=== PATIENT | female | born 1935 | race Two or more races ===

== ENCOUNTER 2019-04-17 23:03 | Inpatient (IN) | payer OTHER, MEDICAID ==
[~2019-04-17] VITALS: Ht 152.4 cm; Wt 57.2 kg
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
--- NOTE | 2019-04-17 23:32 | NUR ---
LAB AT BEDSIDE FOR BLOOD DRAW
[2019-04-17 23:38] LABS: BASOPHILS # (AUTO) 0.1 /CMM (0.0-0.2); BASOPHILS % (AUTO) 0.8 % (0.0-2.0); EOSINOPHILS % (AUTO) 19.8 % (0.0-6.0); HEMATOCRIT 36 % (33-45); HEMOGLOBIN 11.9 g/dL (11.5-14.8); LYMPHOCYTES # (AUTO) 3.7 /CMM (0.8-4.8); LYMPHOCYTES % (AUTO) 30.3 % (20.0-44.0); MEAN CORPUSCULAR HGB CONC 33 g/dl (31.0-36.0); MEAN CORPUSCULAR VOLUME 95 fL (82-100); MONOCYTES # (AUTO) 0.7 /CMM (0.1-1.30); MONOCYTES % (AUTO) 5.7 % (2.0-12.0); NEUTROPHILS # (AUTO) 5.3 /CMM (1.8-8.9); NEUTROPHILS % (AUTO) 43.4 % (43.0-81.0); PLATELET COUNT (AUTO) 251 /CMM (150-450); RED BLOOD CELL COUNT(AUTO) 3.77 MIL/uL (4.0-5.2); WHITE BLOOD COUNT (AUTO) 12.1 K/uL (4.3-11.0)
--- NOTE | 2019-04-17 23:49 | NUR ---
urine collected via straight cath. aware. sent to lab
[2019-04-17 23:51] LABS: ALANINE AMINOTRANSFERASE 25 U/L (12-78); ALBUMIN 3.5 g/dL (3.4-5.0); ALCOHOL, BLOOD < 3 mg/dL (0-0); ALKALINE PHOSPHATASE 68 U/L (46-116); ASPARTATE AMINOTRANSFERASE 10 U/L (15-37); BILIRUBIN,DIRECT 0.1 mg/dL (0.0-0.2); BILIRUBIN,TOTAL 0.4 mg/dL (0.2-1.0); CARBON DIOXIDE 26 mmol/L (21-32); CHLORIDE 106 mmol/L (98-107); CREATININE 0.9 mg/dL (0.6-1.3); GLUCOSE 88 mg/dL (74-106); POTASSIUM 4.5 mmol/L (3.5-5.1); SODIUM SERUM 140 mmol/L (136-145); TOTAL PROTEIN, SERUM 7.4 g/dL (6.4-8.2); UREA NITROGEN, BLOOD 28 mg/dL (7-18)
[2019-04-17 23:52] LABS: ACETAMINOPHEN 0 ug/ml (10-30); SALICYLATE 1.1 mg/dL (2.8-20.0)
--- NOTE | 2019-04-18 | NUR ---
pt in bed sleeping.
[2019-04-18 00:13] LABS: APPEARANCE,URINE Cloudy (CLEAR); BILIRUBIN,URINE Negative (NEGATIVE); BLOOD, URINE Negative Ery/uL (NEGATIVE); COLOR,URINE Yellow (YELLOW); KETONES,URINE Negative (NEGATIVE); LEUKOCYTE ESTERASE ,URINE Negative (NEGATIVE); NITRITE, URINE Negative (NEGATIVE); PROTEIN,URINE 30 mg/dl (NEGATIVE); UGLUCOSE 250 MG/DL mg/dL (NEGATIVE); UROBILINOGEN,URINE 0.2 EU/dL (0.2)
[2019-04-18 00:35] LABS: BACTERIA,URINE Moderate /HPF (None Seen); RBC,URINE 0-2 /HPF (0-2); SQUAMOUS EPITHELIAL CELL,UR Few /HPF (None Seen); WBC,URINE 0-2 /HPF (0-3)
--- NOTE | 2019-04-18 04:11 | NUR ---
BED ASSIGNMENT: 218-A GPS
--- NOTE | 2019-04-18 04:38 | NUR ---
GAVE REPORT TO APOLINAR PETERSEN FOR LEONARDO
--- NOTE | 2019-04-18 04:42 | NUR ---
PT TRANSPORTED TO UNIT WITH EMT AT BEDSIDE. PT IN STABLE CONDITION FOR TRANSPORT
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
[2019-04-18 05:24] VITALS: BP 156/61
[2019-04-18] MEDS ORDERED: SIMV40TA5 PO (05:30)
[2019-04-18] MEDS ORDERED: MAGNESIUM HYDROXIDE 30 ML UDC PO PRN (05:30)
[2019-04-18] MEDS ORDERED: clonazePAM 0.5 MG TABLET PO PRN (05:30)
[2019-04-18] MEDS ORDERED: ACETAMINOPHEN 325 MG TABLET PO PRN (05:30)
[2019-04-18] MEDS ORDERED: MAG HYDROX/AL HYDROX/SIMETH 30 ML UDC PO PRN (05:30)
[2019-04-18] MEDS ORDERED: LAMO25TA10 PO (05:31)
[2019-04-18] MEDS ORDERED: MEMA10TA PO (05:32)
[2019-04-18] MEDS ORDERED: LOSA50TA39 PO (05:32)
[2019-04-18] MEDS ORDERED: METF-441 PO (05:33)
[2019-04-18] MEDS ORDERED: OMEP20CA11 PO (05:34)
[2019-04-18] MEDS ORDERED: ASPI-1152 PO (05:35)
[2019-04-18] MEDS ORDERED: DICL75TA5 PO (05:37)
[2019-04-18] MEDS ORDERED: MOME13HF INH (05:38)
[2019-04-18] MEDS ORDERED: GABA-534 PO (05:38)
[2019-04-18] MEDS ORDERED: GLIP10TA11 PO (05:39)
--- NOTE | 2019-04-18 05:53 | NUR ---
GPS RN NOTE: NOTIFIED DR. ORTEGA OF THE ADMISSION AND MED RECON WITH ORDER OF MILD SLIDING SCALE RECEIVED NOTED AND CARRIED OUT. LEFT MESSAGE TO DAUGHTER REGARDING THE PATIENT ADMISSION.
[2019-04-18] MEDS ORDERED: DEXTROSE 50%-WATER 50 ML DISP.SYRIN IV PRN (06:30)
[2019-04-18] MEDS: BLOOD SUGAR DIAGNOSTIC 1 EACH STRIP IN SCH ×5 (07:44→21:42)
[2019-04-18 08:00] VITALS: BP 151/52
[2019-04-18] MEDS: INSULIN REGULAR, HUMAN 100 UNIT/ML 3 ML VIAL SQ PRN ×3 (09:41→17:41)
--- NOTE | 2019-04-18 10:28 | NUR ---
RN GPS NOTES RECEIVED PATIENT ASLEEP IN BED ABLE TO AROUSE WITH VOICE AND TOUCH NO S/S OF DISTRESS OR ACUTE PAIN NOTED. PATIENT IS A/0 X1-2 LATVIAN SPEAKING .PATIENT DENIES ANY SUICIDE IDEATIONS OR HOMICIDAL IDEATIONS AT THIS TIME. PATIENT HAS NO NEEDS AT THIS TIME . SAFETY PRECAUTIONS IN PLACE BED IN LOW POSITION SIDE RAILS UP X2 FOR SAFETY, BED IN LOW LOCKED POSITION. CALL PORTER WITHIN REACH WILL CONTINUE TO MONITOR ACCORDINGLY
[2019-04-18] MEDS ORDERED: GABAPENTIN 300 MG CAPSULE PO SCH (13:00)
[2019-04-18] MEDS: QUETIAPINE FUMARATE 25 MG TABLET PO SCH ×2 (14:32→17:21)
[2019-04-18 16:00] VITALS: BP 126/64
--- NOTE | 2019-04-18 16:05 | NUR ---
UR Note: MAL faxed a clinical to [facility] with attention to pts case sealer, Glenn, to the fax number: [phone].
[2019-04-18] MEDS ORDERED: FORMOTEROL INH SCH (17:00)
[2019-04-18] MEDS ORDERED: MOMETASONE INH SCH (17:00)
[2019-04-18] MEDS: glipiZIDE 10 MG TABLET PO SCH (17:21)
[2019-04-18] MEDS: METFORMIN 850 MG TABLET PO SCH (17:21)
[2019-04-18] MEDS: DICLOFENAC SODIUM 25 MG TABLET.DR PO SCH (17:22)
--- NOTE | 2019-04-18 18:05 | NUR ---
SPOKE WITH DAUGHTER SKIP IN REGARDS TO BEING ABLE TO BRING IN INHALER. UNABLE TO AT THIS TIME CURRENTLY ON VACATION IN [place]
[2019-04-18 20:00] VITALS: BP 140/61
[2019-04-18] MEDS: SIMVASTATIN 40 MG TABLET PO SCH (21:42)
[2019-04-18] MEDS: TEMAZEPAM 7.5 MG CAPSULE PO PRN (21:43)
[2019-04-19 07:08] LABS: BASOPHILS # (AUTO) 0.2 /CMM (0.0-0.2); EOSINOPHILS % (AUTO) 22.3 % (0.0-6.0); HEMATOCRIT 38 % (33-45); HEMOGLOBIN 12.8 g/dL (11.5-14.8); LYMPHOCYTES # (AUTO) 4.7 /CMM (0.8-4.8); LYMPHOCYTES % (AUTO) 27.2 % (20.0-44.0); MEAN CORPUSCULAR HGB CONC 33 g/dl (31.0-36.0); MEAN CORPUSCULAR VOLUME 93 fL (82-100); MONOCYTES # (AUTO) 0.9 /CMM (0.1-1.30); MONOCYTES % (AUTO) 5.1 % (2.0-12.0); NEUTROPHILS # (AUTO) 7.7 /CMM (1.8-8.9); NEUTROPHILS % (AUTO) 44.4 % (43.0-81.0); PLATELET COUNT (AUTO) 307 /CMM (150-450); RED BLOOD CELL COUNT(AUTO) 4.12 MIL/uL (4.0-5.2); WHITE BLOOD COUNT (AUTO) 17.3 K/uL (4.3-11.0)
[2019-04-19 07:24] LABS: ALANINE AMINOTRANSFERASE 31 U/L (12-78); ALKALINE PHOSPHATASE 67 U/L (46-116); ASPARTATE AMINOTRANSFERASE 13 U/L (15-37); BILIRUBIN,TOTAL 0.5 mg/dL (0.2-1.0); CALCIUM, SERUM 9.3 mg/dL (8.5-10.1); CARBON DIOXIDE 25 mmol/L (21-32); CHLORIDE 102 mmol/L (98-107); GLUCOSE 112 mg/dL (74-106); POTASSIUM 4.1 mmol/L (3.5-5.1); SODIUM SERUM 139 mmol/L (136-145); TOTAL PROTEIN, SERUM 8.1 g/dL (6.4-8.2); UREA NITROGEN, BLOOD 32 mg/dL (7-18)
[2019-04-19 07:49] LABS: CHOLESTEROL 151 mg/dL (<200); HDL CHOLESTEROL 40 mg/dL (40-60); LDL 83 mg/dL (0-99); TRIGLYCERIDES 176 mg/dL (30-150)
[2019-04-19 08:00] VITALS: BP 149/64
[2019-04-19] MEDS: BLOOD SUGAR DIAGNOSTIC 1 EACH STRIP IN SCH ×4 (08:14→21:46)
[2019-04-19] MEDS: METFORMIN 850 MG TABLET PO SCH ×2 (08:14→16:25)
[2019-04-19] MEDS: ASPIRIN EC 81 MG TABLET.DR PO SCH (08:14)
[2019-04-19] MEDS: PANTOPRAZOLE 40 MG TABLET.DR PO SCH (08:14)
[2019-04-19] MEDS: QUETIAPINE FUMARATE 25 MG TABLET PO SCH ×2 (08:15→21:50)
[2019-04-19] MEDS: LOSARTAN POTASSIUM 50 MG TABLET PO SCH (08:15)
[2019-04-19] MEDS: FLUTICASONE/VILANTEROL 1 EACH BLST.W.DEV IH SCH (08:18)
[2019-04-19] MEDS: glipiZIDE 10 MG TABLET PO SCH ×2 (08:20→16:26)
[2019-04-19] MEDS: DICLOFENAC SODIUM 25 MG TABLET.DR PO SCH ×2 (08:22→16:27)
[2019-04-19] MEDS ORDERED: LamoTRIgine 25 MG TABLET PO SCH (09:00)
--- NOTE | 2019-04-19 09:10 | NUR ---
SW attempted to contact pts daughter Kristie [phone] for collateral information, discharge planning, and treatment planning. SW left as voicemail for callback.
--- NOTE | 2019-04-19 09:29 | NUR ---
MAL contacted [facility] Address: [address] [place] [address] and spoke with Mary Carmen, linux server administrator regarding pt return to the facility. Mary Carmen stated that prior to discharge she would like SW to fax clinical information to determine if pt needs to be assessed before returning to facility.
[2019-04-19 09:38] LABS: EOSINOPHILS % (MANUAL) 21 % (0-4); LYMPHOCYTES % (MANUAL) 17 % (16-48); MONOCYTES % (MANUAL) 7 % (0-11.0); NEUTROPHILS % (MANUAL) 55 (42-76)
[2019-04-19] MEDS: INSULIN REGULAR, HUMAN 100 UNIT/ML 3 ML VIAL SQ PRN (12:15)
--- NOTE | 2019-04-19 12:19 | NUR ---
SW attempted to contact pts daughter Kristie [phone] for collateral information, discharge planning, and treatment planning. SW left as voicemail for callback.
--- NOTE | 2019-04-19 12:29 | NUR ---
MAL contacted [facility] Address: [address] [place] [address] and spoke with Mary Carmen, asset administrator regarding collateral information. Mary Carmen informed MAL that pts daughter Kristie is currently in [place] on vacation and does not know when she will be back. Mary Carmen also mentioned that this is pts first psych hospitalization since she's been living at that facility in the past year. Mary Carmen stated that she was unable to provide SW with any more information as she did not have much history on pt.
--- NOTE | 2019-04-19 13:35 | NUR ---
INITIAL DISCHARGE PLAN: Pt will return to Assisted Living. MAL contacted [facility] Address: [address] [place] [address] and spoke with Mary Carmen, human resources benefits administrator regarding pt return to the facility. Mary Carmen stated that prior to discharge she would like SW to fax clinical information to determine if pt needs to be assessed before returning to facility.
[2019-04-19 16:00] VITALS: BP 161/78
--- NOTE | 2019-04-19 19:40 | NUR ---
GPS RN NOTES RECEIVED PT ALLISON CHAIR , ATTEMPTING TO GO OUT OF THE CHAIR. NO AGGRESSIVE BEHAVIOR NOTED.
[2019-04-19 20:04] VITALS: BP 155/68
[2019-04-19] MEDS: SIMVASTATIN 40 MG TABLET PO SCH (21:47)
--- NOTE | 2019-04-19 22:22 | NUR ---
GPS RN NOTES PT REFUSING LIPITOR. PT CONFUSED, REFUSING TO TAKE APPLE SAUCE WITH MEDICINE. EXPLAINED RISK AND BENEFITS. PT STILL REFUSED.
[2019-04-19] MEDS: TEMAZEPAM 7.5 MG CAPSULE PO PRN (22:45)
--- NOTE | 2019-04-19 23:48 | NUR ---
GPS RN NOTES PT SLEEPING COMFORTABLE, NO RESPIRATORY DISTRESS NOTED
[2019-04-20 08:00] VITALS: BP 124/52
[2019-04-20] MEDS: BLOOD SUGAR DIAGNOSTIC 1 EACH STRIP IN SCH ×4 (08:07→21:46)
[2019-04-20] MEDS: glipiZIDE 10 MG TABLET PO SCH ×2 (09:00→17:45)
[2019-04-20] MEDS: DICLOFENAC SODIUM 25 MG TABLET.DR PO SCH ×2 (09:00→17:46)
[2019-04-20] MEDS: METFORMIN 850 MG TABLET PO SCH ×2 (09:00→17:45)
[2019-04-20] MEDS: LOSARTAN POTASSIUM 50 MG TABLET PO SCH (11:15)
[2019-04-20] MEDS: PANTOPRAZOLE 40 MG TABLET.DR PO SCH (11:15)
[2019-04-20] MEDS: ASPIRIN EC 81 MG TABLET.DR PO SCH (11:15)
[2019-04-20] MEDS: INSULIN REGULAR, HUMAN 100 UNIT/ML 3 ML VIAL SQ PRN (14:01)
[2019-04-20] MEDS: FLUTICASONE/VILANTEROL 1 EACH BLST.W.DEV IH SCH (14:08)
--- NOTE | 2019-04-20 15:20 | NUR ---
AM MEDS GIVEN LATE PT. DID NOT WAKE UP TILL AROUND 1130 TO 12 NOON.COVERED FOR MID MORNING INTAKE. ONLY ATE BREAKFAST AND SMALL AMT. LUNCH.
[2019-04-20 16:00] VITALS: BP 134/71
--- NOTE | 2019-04-20 18:26 | NUR ---
NO CHANGE IN STATUS.
[2019-04-20 20:07] VITALS: BP 134/65
[2019-04-20] MEDS: SIMVASTATIN 40 MG TABLET PO SCH (21:45)
[2019-04-20] MEDS: QUETIAPINE FUMARATE 25 MG TABLET PO SCH (21:46)
[2019-04-20] MEDS: TEMAZEPAM 7.5 MG CAPSULE PO PRN (22:30)
[2019-04-21 07:11] LABS: BASOPHILS # (AUTO) 0.1 /CMM (0.0-0.2); CALCIUM, SERUM 9.5 mg/dL (8.5-10.1); CARBON DIOXIDE 26 mmol/L (21-32); CHLORIDE 104 mmol/L (98-107); CREATININE 1.1 mg/dL (0.6-1.3); GLUCOSE 111 mg/dL (74-106); HEMATOCRIT 38 % (33-45); HEMOGLOBIN 12.5 g/dL (11.5-14.8); LYMPHOCYTES # (AUTO) 3.9 /CMM (0.8-4.8); LYMPHOCYTES % (AUTO) 25.9 % (20.0-44.0); MEAN CORPUSCULAR HGB CONC 33 g/dl (31.0-36.0); MEAN CORPUSCULAR VOLUME 93 fL (82-100); MONOCYTES # (AUTO) 0.9 /CMM (0.1-1.30); NEUTROPHILS # (AUTO) 5.8 /CMM (1.8-8.9); NEUTROPHILS % (AUTO) 38.5 % (43.0-81.0); PLATELET COUNT (AUTO) 296 /CMM (150-450); POTASSIUM 4.3 mmol/L (3.5-5.1); RED BLOOD CELL COUNT(AUTO) 4.06 MIL/uL (4.0-5.2); SODIUM SERUM 141 mmol/L (136-145); UREA NITROGEN, BLOOD 37 mg/dL (7-18)
[2019-04-21 07:19] LABS: EOSINOPHILS % (AUTO) 28.6 % (0.0-6.0)
[2019-04-21] MEDS: BLOOD SUGAR DIAGNOSTIC 1 EACH STRIP IN SCH ×4 (07:59→21:15)
[2019-04-21 08:00] VITALS: BP 113/62
[2019-04-21] MEDS: METFORMIN 850 MG TABLET PO SCH ×2 (08:00→16:40)
[2019-04-21] MEDS: glipiZIDE 10 MG TABLET PO SCH ×2 (08:00→16:39)
[2019-04-21] MEDS: LOSARTAN POTASSIUM 50 MG TABLET PO SCH (08:00)
[2019-04-21] MEDS: ASPIRIN EC 81 MG TABLET.DR PO SCH (08:00)
[2019-04-21] MEDS: PANTOPRAZOLE 40 MG TABLET.DR PO SCH (08:00)
[2019-04-21] MEDS: DICLOFENAC SODIUM 25 MG TABLET.DR PO SCH ×2 (08:01→16:40)
[2019-04-21] MEDS: FLUTICASONE/VILANTEROL 1 EACH BLST.W.DEV IH SCH (08:01)
[2019-04-21 09:19] LABS: EOSINOPHILS % (MANUAL) 33 % (0-4); LYMPHOCYTES % (MANUAL) 26 % (16-48); MONOCYTES % (MANUAL) 8 % (0-11.0); NEUTROPHILS % (MANUAL) 33 (42-76)
[2019-04-21] MEDS: INSULIN REGULAR, HUMAN 100 UNIT/ML 3 ML VIAL SQ PRN ×2 (11:52→17:32)
[2019-04-21 16:00] VITALS: BP 151/63
--- NOTE | 2019-04-21 19:15 | NUR ---
GPS RN NOTE, PERFORMED ACCU CHECK WITH A BLOOD SUGAR RESULT OF 158. PATIENT REFUSED INSULIN COVERAGE. OFFERED INSULIN THREE TIMES AND STILL PATIENT REFUSED STATING, " I DON'T WANT INSULIN GET THAT INSULIN AWAY FROM ME ". EDUCATED PATIENT ON THE RISKS AND BENEFITS OF TAKING AND REFUSING INSULIN. WILL CONTINUE TO MONITOR THIS PATIENT.
--- NOTE | 2019-04-21 19:30 | NUR ---
GPS RN NOTE, RECEIVED PATIENT AWAKE AND IN BED, NO S/S OR COMPLAINTS OF PAIN AT THIS TIME. PATIENT IS DISPLAYING NO S/S OF APPARENT DISTRESS AT THIS TIME. PATIENT IS SAMI SPEAKING ONLY. PATIENT BREATHING IS UNLABORED WITH EQUAL RISE AND FALL OF THE CHEST. PATIENT IS ALERT AND ORIENTED X 2 ON ROOM AIR WITH A SPO2 OF 98 %. PATIENT IS MED COMPLAINT, DISORGANIZED, ANXIOUS, COOPERATIVE, AND NEEDS REORIENTATION. PATIENT AGREED TO DO PICTURES TODAY. PATIENT DENIES SUICIDE AND HOMICIDAL IDEATIONS AT THIS TIME. PATIENT ASSISTED WITH TURNING AND REPOSITIONING Q2HR AND PRN FOR COMFORT AND CIRCULATION. PATIENT HAS NO NEEDS AT THIS TIME. PATIENT EDUCATED ON THE USE OF THE CALL PORTER. PATIENT BED SIDE RAILS ARE UP X 2 FOR SAFETY, BED IS LOCKED, AND LOW WILL CONTINUE TO MONITOR AND MAINTAIN SAFETY.
[2019-04-21 20:37] VITALS: BP 134/76
[2019-04-21] MEDS: QUETIAPINE FUMARATE 25 MG TABLET PO SCH (21:59)
[2019-04-21] MEDS: SIMVASTATIN 40 MG TABLET PO SCH (22:00)
[2019-04-22] MEDS: PANTOPRAZOLE 40 MG TABLET.DR PO SCH (07:30)
[2019-04-22] MEDS: BLOOD SUGAR DIAGNOSTIC 1 EACH STRIP IN SCH ×4 (07:30→22:04)
[2019-04-22 08:00] VITALS: BP 120/62
[2019-04-22] MEDS: DICLOFENAC SODIUM 25 MG TABLET.DR PO SCH ×2 (09:00→18:01)
[2019-04-22] MEDS: METFORMIN 850 MG TABLET PO SCH ×2 (09:00→17:57)
[2019-04-22] MEDS: ASPIRIN EC 81 MG TABLET.DR PO SCH (09:00)
[2019-04-22] MEDS: glipiZIDE 10 MG TABLET PO SCH ×2 (09:00→17:57)
[2019-04-22] MEDS: LOSARTAN POTASSIUM 50 MG TABLET PO SCH (09:00)
--- NOTE | 2019-04-22 09:18 | NUR ---
UR NOTE: SW contacted Case Manger: Margaret Glynn [phone] at [facility] Auth: [id number] who stated she would assist SW with discharge planning and transportation. Margaret also stated that pts outpatient psychiatrist is Dr. Rahman and stated pt should be under dr. Rahman's treatment during her current hospitalization. Margaret also requested SW fax daily clinicals to .
[2019-04-22] MEDS: FLUTICASONE/VILANTEROL 1 EACH BLST.W.DEV IH SCH (09:23)
--- NOTE | 2019-04-22 09:49 | NUR ---
UR NOTE: faxed clinical information to Case Manger: Margaret Renard [phone] at [facility] Auth: [id number]
[2019-04-22 14:21] LABS: BASOPHILS # (AUTO) 0.1 /CMM (0.0-0.2); HEMATOCRIT 38 % (33-45); HEMOGLOBIN 12.6 g/dL (11.5-14.8); LYMPHOCYTES # (AUTO) 2.9 /CMM (0.8-4.8); LYMPHOCYTES % (AUTO) 20.1 % (20.0-44.0); MEAN CORPUSCULAR HGB CONC 33 g/dl (31.0-36.0); MEAN CORPUSCULAR VOLUME 95 fL (82-100); MONOCYTES # (AUTO) 0.7 /CMM (0.1-1.30); MONOCYTES % (AUTO) 4.7 % (2.0-12.0); NEUTROPHILS # (AUTO) 6.1 /CMM (1.8-8.9); NEUTROPHILS % (AUTO) 41.9 % (43.0-81.0); PLATELET COUNT (AUTO) 275 /CMM (150-450); RED BLOOD CELL COUNT(AUTO) 4.01 MIL/uL (4.0-5.2); WHITE BLOOD COUNT (AUTO) 14.5 K/uL (4.3-11.0)
[2019-04-22 14:22] LABS: ALANINE AMINOTRANSFERASE 41 U/L (12-78); ALBUMIN 3.9 g/dL (3.4-5.0); ALKALINE PHOSPHATASE 69 U/L (46-116); ASPARTATE AMINOTRANSFERASE 16 U/L (15-37); BILIRUBIN,TOTAL 0.9 mg/dL (0.2-1.0); CALCIUM, SERUM 9.3 mg/dL (8.5-10.1); CARBON DIOXIDE 28 mmol/L (21-32); CHLORIDE 102 mmol/L (98-107); GLUCOSE 211 mg/dL (74-106); POTASSIUM 3.9 mmol/L (3.5-5.1); SODIUM SERUM 140 mmol/L (136-145); UREA NITROGEN, BLOOD 30 mg/dL (7-18)
[2019-04-22 14:23] LABS: EOSINOPHILS % (AUTO) 32.3 % (0.0-6.0)
[2019-04-22 14:57] LABS: LYMPHOCYTES % (MANUAL) 20 % (16-48); MONOCYTES % (MANUAL) 5 % (0-11.0); NEUTROPHILS % (MANUAL) 46 (42-76)
[2019-04-22 14:58] LABS: EOSINOPHILS % (MANUAL) 29 % (0-4)
[2019-04-22 16:00] VITALS: BP 148/61
[2019-04-22 20:22] VITALS: BP 148/75
[2019-04-22] MEDS ORDERED: SIMVASTATIN 20 MG TABLET ONE (21:56)
[2019-04-22] MEDS: QUETIAPINE FUMARATE 25 MG TABLET PO SCH (22:02)
[2019-04-22] MEDS: INSULIN REGULAR, HUMAN 100 UNIT/ML 3 ML VIAL SQ PRN (22:03)
[2019-04-22] MEDS: SIMVASTATIN 40 MG TABLET PO SCH (22:04)
[2019-04-23] MEDS: BLOOD SUGAR DIAGNOSTIC 1 EACH STRIP IN SCH ×4 (07:30→22:10)
[2019-04-23 08:00] VITALS: BP 109/50
--- NOTE | 2019-04-23 08:08 | NUR ---
RN NOTE: REFUSED ACCUCHECK. CONVINCED SHE'S NOT A DIABETIC.
[2019-04-23] MEDS: glipiZIDE 10 MG TABLET PO SCH ×2 (08:25→17:34)
[2019-04-23] MEDS: PANTOPRAZOLE 40 MG TABLET.DR PO SCH (08:26)
[2019-04-23] MEDS: ASPIRIN EC 81 MG TABLET.DR PO SCH (08:26)
[2019-04-23] MEDS: METFORMIN 850 MG TABLET PO SCH ×2 (08:26→17:34)
[2019-04-23] MEDS: LOSARTAN POTASSIUM 50 MG TABLET PO SCH (08:26)
[2019-04-23] MEDS: FLUTICASONE/VILANTEROL 1 EACH BLST.W.DEV IH SCH (08:31)
[2019-04-23] MEDS: DICLOFENAC SODIUM 25 MG TABLET.DR PO SCH ×2 (08:34→17:34)
[2019-04-23 09:51] LABS: BASOPHILS # (AUTO) 0.1 /CMM (0.0-0.2); BASOPHILS % (AUTO) 0.6 % (0.0-2.0); HEMATOCRIT 35 % (33-45); HEMOGLOBIN 11.8 g/dL (11.5-14.8); LYMPHOCYTES # (AUTO) 3.4 /CMM (0.8-4.8); LYMPHOCYTES % (AUTO) 26.2 % (20.0-44.0); MEAN CORPUSCULAR HGB CONC 34 g/dl (31.0-36.0); MEAN CORPUSCULAR VOLUME 94 fL (82-100); MONOCYTES # (AUTO) 0.6 /CMM (0.1-1.30); MONOCYTES % (AUTO) 4.8 % (2.0-12.0); NEUTROPHILS # (AUTO) 4.4 /CMM (1.8-8.9); NEUTROPHILS % (AUTO) 33.1 % (43.0-81.0); PLATELET COUNT (AUTO) 268 /CMM (150-450); RED BLOOD CELL COUNT(AUTO) 3.78 MIL/uL (4.0-5.2); WHITE BLOOD COUNT (AUTO) 13.1 K/uL (4.3-11.0)
[2019-04-23 09:57] LABS: EOSINOPHILS % (AUTO) 35.3 % (0.0-6.0)
[2019-04-23 11:34] LABS: EOSINOPHILS % (MANUAL) 32 % (0-4); LYMPHOCYTES % (MANUAL) 29 % (16-48); MONOCYTES % (MANUAL) 3 % (0-11.0); NEUTROPHILS % (MANUAL) 36 (42-76)
[2019-04-23 16:00] VITALS: BP 142/56
--- NOTE | 2019-04-23 16:18 | NUR ---
MAL received a call from pts daughter [facility] [phone] inquiring on pts discharge. Daughter was concerned as to why pt was still hospitalized and not being discharged. MAL informed her that she would be discussing discharge date with Dr. Rahman. Daughter agreed.
--- NOTE | 2019-04-23 16:20 | NUR ---
MAL received a call from ABHIJEET Rodriguez at [facility] [place] [phone] wanting to know when pt will be discharged to arrange discharge and transportation. MAL informed her that she needed to speak with psychiatrist Dr. Rahman regarding discharge orders and would inform her as soon as she know the discharge date.
[2019-04-23 16:23] LABS: APPEARANCE,URINE SL CLOUDY (CLEAR); BILIRUBIN,URINE NEGATIVE (NEGATIVE); BLOOD, URINE NEGATIVE Ery/uL (NEGATIVE); COLOR,URINE YELLOW (YELLOW); KETONES,URINE NEGATIVE (NEGATIVE); LEUKOCYTE ESTERASE ,URINE 1+ (NEGATIVE); NITRITE, URINE POSITIVE (NEGATIVE); PH,URINE 5.5 (5.0-8.0); PROTEIN,URINE NEGATIVE (NEGATIVE); UGLUCOSE NEGATIVE (NEGATIVE); UROBILINOGEN,URINE 0.2 EU/dL (0.2)
[2019-04-23 16:30] LABS: BACTERIA,URINE Moderate /HPF (None Seen); RBC,URINE 0-2 /HPF (0-2); SQUAMOUS EPITHELIAL CELL,UR Few /HPF (None Seen)
--- NOTE | 2019-04-23 17:39 | NUR ---
RN NOTE: URINE COLLECTED AND CONTACTED LAB FOR WOOL SCOURER. PATIENT HAS NOT HAD A BM YET THROUGHOUT MY SHIFT. WILL COLLECT STOOL SAMPLE ONCE PATIENT HAS ONE.
[2019-04-23] MEDS: INSULIN REGULAR, HUMAN 100 UNIT/ML 3 ML VIAL SQ PRN (17:49)
--- NOTE | 2019-04-23 19:30 | NUR ---
GPS RN NOTE, RECEIVED PATIENT AWAKE AND IN BED, NO S/S OR COMPLAINTS OF PAIN AT THIS TIME. PATIENT IS DISPLAYING NO S/S OF APPARENT DISTRESS AT THIS TIME. PATIENT IS GREEK SPEAKING ONLY. PATIENT BREATHING IS UNLABORED WITH EQUAL RISE AND FALL OF THE CHEST. PATIENT IS ALERT AND ORIENTED X 2 ON ROOM AIR WITH A SPO2 OF 98 %. PATIENT IS MED COMPLAINT, DISORGANIZED, ANXIOUS, COOPERATIVE, AND NEEDS REORIENTATION. PATIENT DENIES SUICIDE AND HOMICIDAL IDEATIONS AT THIS TIME. PATIENT ASSISTED WITH TURNING AND REPOSITIONING Q2HR AND PRN FOR COMFORT AND CIRCULATION. PATIENT HAS NO NEEDS AT THIS TIME. PATIENT EDUCATED ON THE USE OF THE CALL PORTER. PATIENT BED SIDE RAILS ARE UP X 2 FOR SAFETY, BED IS LOCKED, AND LOW WILL CONTINUE TO MONITOR AND MAINTAIN SAFETY.
[2019-04-23 20:45] VITALS: BP 125/61
[2019-04-23] MEDS: CEPHALEXIN MONOHYDRATE 500 MG CAPSULE PO SCH (21:33)
[2019-04-23] MEDS: QUETIAPINE FUMARATE 25 MG TABLET PO SCH (21:35)
[2019-04-23] MEDS: SIMVASTATIN 40 MG TABLET PO SCH (21:37)
--- NOTE | 2019-04-23 22:10 | NUR ---
GPS RN NOTE, PERFORMED ACCU CHECK WITH A BLOOD SUGAR RESULT OF 113. NO INSULIN COVERAGE PER SLIDING SCALE. WILL CONTINUE TO MONITOR THIS PATIENT.
--- NOTE | 2019-04-24 07:35 | NUR ---
GPS/RN - ACCU-CHECK PATIENT REFUSED BLOOD SUGAR CHECK, EXPLAINED THE IMPORTANCE BUT STILL DOESN'T WANT IT.
[2019-04-24] MEDS: BLOOD SUGAR DIAGNOSTIC 1 EACH STRIP IN SCH ×2 (07:36→12:00)
[2019-04-24] MEDS: PANTOPRAZOLE 40 MG TABLET.DR PO SCH (07:55)
[2019-04-24 08:00] VITALS: BP 123/59
[2019-04-24] MEDS: METFORMIN 850 MG TABLET PO SCH (08:25)
[2019-04-24] MEDS: glipiZIDE 10 MG TABLET PO SCH (08:25)
[2019-04-24] MEDS: LOSARTAN POTASSIUM 50 MG TABLET PO SCH (08:25)
[2019-04-24] MEDS: CEPHALEXIN MONOHYDRATE 500 MG CAPSULE PO SCH (08:25)
[2019-04-24] MEDS: ASPIRIN EC 81 MG TABLET.DR PO SCH (08:25)
[2019-04-24] MEDS: FLUTICASONE/VILANTEROL 1 EACH BLST.W.DEV IH SCH (08:26)
[2019-04-24] MEDS: DICLOFENAC SODIUM 25 MG TABLET.DR PO SCH (08:27)
--- NOTE | 2019-04-24 09:35 | NUR ---
MAL called ABHIJEET Rodriguez at [facility] [place] [phone] and left a voicemail stating that the pt is going to be discharged and was asking for a call back to arrange transportation.
--- NOTE | 2019-04-24 12:19 | NUR ---
SW called Case Manger: Margaret Renard [phone] at [facility] and left a voicemail stating that the pt is going to be discharged and that transportation needs to be arranged.
--- NOTE | 2019-04-24 13:29 | NUR ---
MAL called pts daughter Kristie [phone] and informed her that the pt is being discharged back to [facility] today.
--- NOTE | 2019-04-24 13:32 | NUR ---
MAL called [facility] ([phone])[facility], and informed her of the discharge. She stated that transportation will be arranged through [facility] ([phone]). She also stated that she would like the current medications to be faxed.
--- NOTE | 2019-04-24 13:40 | NUR ---
MAL faxed a medication update to [facility] with attention to Margaret to the fax number: [phone].
[2019-04-24 16:00] VITALS: BP 147/40
--- NOTE | 2019-04-24 16:06 | NUR ---
Printed Circuit Board Preassembler Group Session-- Goal: Patient will attend group being held today from 11am -11:45 in the activities room and participate and/or actively listen to peers and be respectful. Intervention: SW invited patient to attend group session with peers regarding: the goal or positive outcome/s each pt. would like to see happen as a result of their stay in [facility]. SW respected patient�s self-determination and will continue to invite patient to future group sessions. Response: Patient declined to participate in today�s group social media campaign manager session. Plan: Patient will be invited to attend next social media campaign manager group held.
--- NOTE | 2019-04-24 16:30 | NUR ---
Discharge Note: Pt was discharged to [facility] located at [address] [place] [address]; ([phone]). Pt was transported via [facility] Trip #[id number] at 4:30pm. Pts daughter, Kristie ([phone]), was informed. Upon discharge, the pt appeared to be in a depressed mood and presented with a flat affect. Pt denied both suicidal and homicidal ideation as well as auditory and visual hallucinations. Pt will be under the care of her psychiatrist, Dr. Daiana Rahman, located at [address] [address]; and her temple meat cutter, Dr. Leydi Berry, located at [address] [place] [address]; .
--- NOTE | 2019-04-24 17:16 | NUR ---
GPS/RN - DISCHARGE NOTE PATIENT DISCHARGED TO [facility] ([phone]) IN STABLE CONDITION. REPORT CALLED TO [facility] FOR CONTINUITY OF CARE. PATIENT COMPLIANT WITH MEDICATIONS, COOPERATIVE WITH TREATMENT PLAN, DENIES SI/HI. MEDICATIONS RECONCILED WITH DR. MACDONALD AND ARSENIO MCCAIN. CALLED AND FAXED PRESCRIPTION TO [facility] ([phone]). ALL PERSONAL BELONGINGS WITH PATIENT. PATIENT REFUSED PHOTOS TO BE TAKEN, NO OPEN WOUNDS SEEN. DISCHARGE PAPERS GIVEN TO AMBULANCE CREW. PATIENT LEFT THE UNIT AT 17:10. DAUGHTER SKIP ([phone]) MADE AWARE.
== END 2019-04-24 17:10 | DRG 885 ==
LOC: ER 23:12 → GPS 04-18 04:20
PROVIDERS: ADMIT Psychiatry & Neurology Psychiatry; ATTEND Nurse Practitioner Acute Care
DX: F31.64 Bipolar disorder, current episode mixed, severe, with psychotic features (principal); E11.65 Type 2 diabetes mellitus with hyperglycemia; N39.0 Urinary tract infection, site not specified; Z73.6 Limitation of activities due to disability; F29 Unspecified psychosis not due to a substance or known physiological condition; F02.80 Dementia in other diseases classified elsewhere, unspecified severity, without behavioral disturbance, psychotic disturbance, mood disturbance, and anxiety; F41.9 Anxiety disorder, unspecified; G30.9 Alzheimer's disease, unspecified; Z79.82 Long term (current) use of aspirin; Z79.84 Long term (current) use of oral hypoglycemic drugs; Z79.899 Other long term (current) drug therapy; E78.5 Hyperlipidemia, unspecified; E11.42 Type 2 diabetes mellitus with diabetic polyneuropathy; J44.9 Chronic obstructive pulmonary disease, unspecified; D72.1 Eosinophilia; I10 Essential (primary) hypertension; K76.0 Fatty (change of) liver, not elsewhere classified
CPT/HCPCS: 36415; 71045-TC; 76700-TC; 80048-TC; 80053-TC; 80061-TC; 80076-TC; 80305; 81000-TC; 82962-TC; 85025-TC; 86140-TC; 86431-TC; 87081-TC; 87086-TC; 87186-TC; 97110-TC; 97116-TC; 97530-TC; G0480; J1815

== ENCOUNTER 2019-09-03 21:21 | Emergency (ER) | payer OTHER, MEDICAID ==
[~2019-09-03] VITALS: Ht 175.3 cm; Wt 59.0 kg
[~2019-09-03 21:21] MED LIST: ASPI-1152 PO; DICL75TA5 PO; GABA-534 PO; GLIP10TA11 PO; LAMO25TA10 PO; LOSA50TA39 PO; MEMA10TA PO; METF-441 PO; MOME13HF INH; OMEP20CA15 PO; SIMV-49 PO
--- NOTE | 2019-09-03 21:35 | NUR ---
PT BIB RA WITH A C/O RLQ ABD PAIN. PT WAS SLEEPY IN THE FIELD AND WAS GIVEN 2MG IM NARCAN. PT ARRIVED TO THE ER SLEEPY, BUT ABLE TO ANSWER QUESTIONS. PT IS INDONESIAN SPEAKING ONLY. PT WAS PLACED ON THE MONITOR AND CONTINUOUS PULSE OX. VSS. PT IS AWAITING EVAL BY .
[2019-09-03 21:56] LABS: BASOPHILS # (AUTO) 0.1 /CMM (0.0-0.2); BASOPHILS % (AUTO) 0.6 % (0.0-2.0); EOSINOPHILS % (AUTO) 14.1 % (0.0-6.0); HEMATOCRIT 36 % (33-45); HEMOGLOBIN 11.5 g/dL (11.5-14.8); LYMPHOCYTES # (AUTO) 1.9 /CMM (0.8-4.8); LYMPHOCYTES % (AUTO) 15.5 % (20.0-44.0); MEAN CORPUSCULAR HGB CONC 32 g/dl (31.0-36.0); MEAN CORPUSCULAR VOLUME 96 fL (82-100); MONOCYTES # (AUTO) 0.7 /CMM (0.1-1.30); MONOCYTES % (AUTO) 5.7 % (2.0-12.0); NEUTROPHILS % (AUTO) 64.1 % (43.0-81.0); PLATELET COUNT (AUTO) 222 /CMM (150-450); WHITE BLOOD COUNT (AUTO) 12.5 K/uL (4.3-11.0)
[2019-09-03 22:04] LABS: CALCIUM, SERUM 9.2 mg/dL (8.5-10.1); CARBON DIOXIDE 24 mmol/L (21-32); CHLORIDE 110 mmol/L (98-107); CREATININE 1.4 mg/dL (0.6-1.3); GLUCOSE 132 mg/dL (74-106); POTASSIUM 5.1 mmol/L (3.5-5.1); SODIUM SERUM 142 mmol/L (136-145); UREA NITROGEN, BLOOD 46 mg/dL (7-18)
[2019-09-03 22:09] LABS: ALANINE AMINOTRANSFERASE 24 U/L (12-78); ALBUMIN 3.8 g/dL (3.4-5.0); ALKALINE PHOSPHATASE 66 U/L (46-116); ASPARTATE AMINOTRANSFERASE 12 U/L (15-37); BILIRUBIN,DIRECT 0.1 mg/dL (0.0-0.2); BILIRUBIN,TOTAL 0.5 mg/dL (0.2-1.0); LIPASE 52 U/L (73-393); TOTAL PROTEIN, SERUM 7.7 g/dL (6.4-8.2)
[2019-09-03 22:40] LABS: APPEARANCE,URINE Cloudy (CLEAR); BILIRUBIN,URINE Negative (NEGATIVE); BLOOD, URINE Negative Ery/uL (NEGATIVE); COLOR,URINE Yellow (YELLOW); KETONES,URINE Negative (NEGATIVE); LEUKOCYTE ESTERASE ,URINE Negative (NEGATIVE); NITRITE, URINE Negative (NEGATIVE); PROTEIN,URINE Negative (NEGATIVE); UGLUCOSE Negative (NEGATIVE); UROBILINOGEN,URINE 0.2 EU/dL (0.2)
[2019-09-03] MEDS: IV NS 0.9% 1,000 ML BAG IV ONE (23:00)
--- NOTE | 2019-09-03 23:00 | NUR ---
PT REC'D IVF ORDERED. PT ALSO REC'D A WARM BLANKET.
--- NOTE | 2019-09-03 23:03 | NUR ---
DR. JAMES ON THE PHONE WITH DR. ZAVALETA (MATHEMATICAL STATISTICIAN FOR DR. MICHEL SOLOMON, PT'S PMD) [phone]
--- NOTE | 2019-09-03 23:16 | NUR ---
CALLED [facility] FOR TRANSPORTATION. ETA [phone]
--- NOTE | 2019-09-03 23:59 | NUR ---
PT APPEARS TO BE RESTING COMFORTABLY WITH NO S/S OF PAIN AND DISTRESS.
--- NOTE | 2019-09-04 00:28 | NUR ---
AMBULANCE ARRIVED TO TRANSPORT PT BACK TO HER FACILITY. REPORT GIVEN AND COPY OF LABS AND IMAGING GIVEN. CALLED PT'S DAUGHTER AND FACILITY THAT THE PT IS RETURNING. VSS. Patient discharged to home in stable condition. Written and verbal after care instructions given. AMBULANCE EMT verbalizes understanding of instruction.
[2019-09-04 00:46] VITALS: BP 96/43
== END 2019-09-04 00:28 | disposition home or self-care (01) ==
LOC: ER 21:22
DX: R11.10 Vomiting, unspecified (principal); R10.9 Unspecified abdominal pain; G30.9 Alzheimer's disease, unspecified; F02.80 Dementia in other diseases classified elsewhere, unspecified severity, without behavioral disturbance, psychotic disturbance, mood disturbance, and anxiety; I10 Essential (primary) hypertension; E11.9 Type 2 diabetes mellitus without complications; Z79.899 Other long term (current) drug therapy; Z79.84 Long term (current) use of oral hypoglycemic drugs; Z79.82 Long term (current) use of aspirin
CPT/HCPCS: 36415; 74176; 80048; 80076; 81001; 83690; 85025; 93005; 96360; 99284; J7030; 81000-TC

== ENCOUNTER 2019-10-26 17:23 | Emergency (ER) | payer OTHER, MEDICAID ==
[~2019-10-26] VITALS: Ht 160 cm; Wt 57.2 kg
--- NOTE | 2019-10-26 17:27 | NUR ---
MATIAS FROM [facility], ALTERED, BS 25, D10 GIVEN ON SCENE AND SUGAR WENT UP TO 251. TO ER BED 9, HOOKED TO MONITOR, CHANGED TO HOSP GOWN, PROVIDED W WARM BLANKET, BREATHING EVEN AND UNLABORED, NAD NOTED. AWAITING MD FLOWERS
--- NOTE | 2019-10-26 17:30 | NUR ---
DR TOBIN AT BEDSIDE
[2019-10-26] MEDS ORDERED: ACET-868 PO (17:41)
[2019-10-26] MEDS ORDERED: ZINC57OI3 TP (17:41)
[2019-10-26] MEDS ORDERED: FAMO20TA8 PO (17:41)
[2019-10-26] MEDS ORDERED: QUET50TA PO (17:41)
[2019-10-26] MEDS ORDERED: METF-440 PO (17:41)
[2019-10-26] MEDS ORDERED: DOCU250C14 PO (17:41)
[2019-10-26 17:48] LABS: BASOPHILS # (AUTO) 0.1 /CMM (0.0-0.2); BASOPHILS % (AUTO) 0.7 % (0.0-2.0); EOSINOPHILS % (AUTO) 10.6 % (0.0-6.0); HEMATOCRIT 34 % (33-45); HEMOGLOBIN 10.9 g/dL (11.5-14.8); LYMPHOCYTES # (AUTO) 1.1 /CMM (0.8-4.8); LYMPHOCYTES % (AUTO) 8.5 % (20.0-44.0); MEAN CORPUSCULAR HGB CONC 33 g/dl (31.0-36.0); MEAN CORPUSCULAR VOLUME 95 fL (82-100); MONOCYTES # (AUTO) 0.8 /CMM (0.1-1.30); MONOCYTES % (AUTO) 5.6 % (2.0-12.0); NEUTROPHILS % (AUTO) 74.6 % (43.0-81.0); PLATELET COUNT (AUTO) 233 /CMM (150-450); RED BLOOD CELL COUNT(AUTO) 3.51 MIL/uL (4.0-5.2); WHITE BLOOD COUNT (AUTO) 13.4 K/uL (4.3-11.0)
[2019-10-26 18:00] LABS: CALCIUM, SERUM 9.1 mg/dL (8.5-10.1); CARBON DIOXIDE 24 mmol/L (21-32); CHLORIDE 104 mmol/L (98-107); CREATININE 1.1 mg/dL (0.6-1.3); GLUCOSE 89 mg/dL (74-106); POTASSIUM 4.3 mmol/L (3.5-5.1); SODIUM SERUM 142 mmol/L (136-145); UREA NITROGEN, BLOOD 28 mg/dL (7-18)
[2019-10-26 18:06] LABS: ALANINE AMINOTRANSFERASE 23 U/L (12-78); ALBUMIN 3.7 g/dL (3.4-5.0); ALKALINE PHOSPHATASE 62 U/L (46-116); ASPARTATE AMINOTRANSFERASE 18 U/L (15-37); BILIRUBIN,DIRECT 0.1 mg/dL (0.0-0.2); BILIRUBIN,TOTAL 0.4 mg/dL (0.2-1.0); TOTAL PROTEIN, SERUM 7.6 g/dL (6.4-8.2)
--- NOTE | 2019-10-26 18:27 | NUR ---
ACCUCHECK 57, PROVIDED W JUICE, TOLERATING WELL. ORDERED FOOD FROM KITCHEN
--- NOTE | 2019-10-26 18:39 | NUR ---
PROVIDED W FOOD TRAY. TOLERATING PO WELL.
--- NOTE | 2019-10-26 19:14 | NUR ---
elevated bp noted, made dr astudillo aware.
--- NOTE | 2019-10-26 19:20 | NUR ---
report given to kiko rivera for otilio
[2019-10-26] MEDS ORDERED: BENAZEPRIL HCL 10 MG TABLET PO ONE (19:30)
--- NOTE | 2019-10-26 19:33 | NUR ---
PATIENT REMOVED IV LINE.
--- NOTE | 2019-10-26 19:40 | NUR ---
[facility] TRIP#[id number], ETA [phone]
[2019-10-26] MEDS ORDERED: BENAZEPRIL HCL 10 MG TABLET ONE (20:04)
--- NOTE | 2019-10-26 20:53 | NUR ---
CALLED FOR REPORT, WILL CALL BACK FOR REPORT. MARILEE MADRID NOTIFIED AND AWARE OF PATIENT RETURNING.
--- NOTE | 2019-10-26 21:56 | NUR ---
REPORT GIVEN TO [facility] AND LEONARDO.
[2019-10-26 22:03] VITALS: BP 153/73
== END 2019-10-26 22:03 | disposition home or self-care (01) ==
LOC: ER 17:24
DX: E11.649 Type 2 diabetes mellitus with hypoglycemia without coma (principal); I10 Essential (primary) hypertension; E78.5 Hyperlipidemia, unspecified; G30.9 Alzheimer's disease, unspecified; F02.80 Dementia in other diseases classified elsewhere, unspecified severity, without behavioral disturbance, psychotic disturbance, mood disturbance, and anxiety; R56.9 Unspecified convulsions; K21.9 Gastro-esophageal reflux disease without esophagitis; Z79.899 Other long term (current) drug therapy; Z79.82 Long term (current) use of aspirin
CPT/HCPCS: 36415; 80048-TC; 80076-TC; 82962-TC; 84484-TC; 85025-TC

== ENCOUNTER 2019-10-28 16:12 | Emergency (ER) | payer OTHER, MEDICAID ==
[~2019-10-28] VITALS: Ht 160 cm; Wt 57.2 kg
[~2019-10-28 16:12] MED LIST changes: +ACET-868 PO; +DOCU250C14 PO; +FAMO20TA8 PO; +METF-440 PO; -METF-441 PO; -MOME13HF INH; -OMEP20CA15 PO; +QUET50TA PO; +ZINC57OI3 TP
--- NOTE | 2019-10-28 16:20 | NUR ---
nabiljagdeep,84 year old female from [facility], hyperglycemia BS3 56, was here 2 days ago. alert and oriented x1, breathing even and unlabored with no distress noted. skin intact. waiting to be seen by
[2019-10-28 17:09] LABS: BASOPHILS # (AUTO) 0.1 /CMM (0.0-0.2); BASOPHILS % (AUTO) 1.2 % (0.0-2.0); HEMATOCRIT 33 % (33-45); HEMOGLOBIN 10.8 g/dL (11.5-14.8); LYMPHOCYTES # (AUTO) 2.9 /CMM (0.8-4.8); MEAN CORPUSCULAR HGB CONC 33 g/dl (31.0-36.0); MEAN CORPUSCULAR VOLUME 96 fL (82-100); MONOCYTES # (AUTO) 0.8 /CMM (0.1-1.30); MONOCYTES % (AUTO) 6.1 % (2.0-12.0); NEUTROPHILS # (AUTO) 4.6 /CMM (1.8-8.9); NEUTROPHILS % (AUTO) 37.2 % (43.0-81.0); PLATELET COUNT (AUTO) 197 /CMM (150-450); RED BLOOD CELL COUNT(AUTO) 3.48 MIL/uL (4.0-5.2); WHITE BLOOD COUNT (AUTO) 12.5 K/uL (4.3-11.0)
[2019-10-28 17:11] LABS: EOSINOPHILS % (AUTO) 32.5 % (0.0-6.0)
[2019-10-28 17:16] LABS: ABG OXYGEN SATURATION 94.1 % (92.0-98.5); ABG PCO2 41.6 mmHg (35.0-45.0); ABG PH 7.395 (7.350-7.450); ABG PO2 80.3 mmHg (75.0-100.0); AaDO2 19.6 mmHg; COHb 0.2 % (0.5-1.5); MetHb 0.2 % (0.0-1.5); O2Hb 93.7 % (94.0-97.0); SITE, ABG Left Radial; VENT MODE, BG room air
[2019-10-28 17:38] LABS: CALCIUM, SERUM 8.9 mg/dL (8.5-10.1); CARBON DIOXIDE 24 mmol/L (21-32); CHLORIDE 106 mmol/L (98-107); CREATININE 0.9 mg/dL (0.6-1.3); GLUCOSE 276 mg/dL (74-106); POTASSIUM 4.2 mmol/L (3.5-5.1); SODIUM SERUM 140 mmol/L (136-145); UREA NITROGEN, BLOOD 30 mg/dL (7-18)
[2019-10-28 17:54] LABS: EOSINOPHILS % (MANUAL) 29 % (0-4); LYMPHOCYTES % (MANUAL) 15 % (16-48); MONOCYTES % (MANUAL) 4 % (0-11.0); NEUTROPHILS % (MANUAL) 52 (42-76)
[2019-10-28 18:06] LABS: MAGNESIUM 1.5 mg/dL (1.8-2.4); PHOSPHORUS 3.8 mg/dL (2.5-4.9)
--- NOTE | 2019-10-28 18:54 | NUR ---
pt was able to ambulate to bathroom with assist
[2019-10-28] MEDS ORDERED: IV NS 0.9% 1,000 ML BAG IV ONE (20:00)
[2019-10-28] MEDS ORDERED: Magnesium 1GM/D5W 100ML PREMIX 100 ML IV ONE (20:23)
[2019-10-28] MEDS: Magnesium 1GM/D5W 100ML PREMIX 100 ML IV SCH ×2 (20:27→21:30)
[2019-10-28] MEDS ORDERED: MAGNESIUM OXIDE 400 MG TABLET PO ONE (20:30)
--- NOTE | 2019-10-28 21:26 | NUR ---
CALLED [facility]HE[facility] FOR [place] ETA OF [phone] WAS GIVEN. TRIP#[id number]
--- NOTE | 2019-10-28 21:59 | NUR ---
Mg iv order clarified by Dr. Huerta. per to give only 1 gr IV
--- NOTE | 2019-10-28 22:39 | NUR ---
REPORT GIVEN TO sr. manager IV removed. Catheter intact and site benign. Pressure and 4x4 applied to site. No bleeding noted.
--- NOTE | 2019-10-28 22:52 | NUR ---
PT WAS PICKED UP BY [facility] VIA GURNEY IN STABLE CONDITION BACK TO THE FACILITY. ALL BELONGINGS WERE PICKLED UP
[2019-10-28 23:20] VITALS: BP 131/79
== END 2019-10-28 22:52 | disposition home or self-care (01) ==
LOC: ER 16:23
DX: E11.65 Type 2 diabetes mellitus with hyperglycemia (principal); E86.0 Dehydration; E83.42 Hypomagnesemia; G30.9 Alzheimer's disease, unspecified; F02.80 Dementia in other diseases classified elsewhere, unspecified severity, without behavioral disturbance, psychotic disturbance, mood disturbance, and anxiety; I10 Essential (primary) hypertension; E78.5 Hyperlipidemia, unspecified; K21.9 Gastro-esophageal reflux disease without esophagitis; E11.40 Type 2 diabetes mellitus with diabetic neuropathy, unspecified; F25.9 Schizoaffective disorder, unspecified; G40.909 Epilepsy, unspecified, not intractable, without status epilepticus; Z79.899 Other long term (current) drug therapy; Z79.84 Long term (current) use of oral hypoglycemic drugs; Z79.82 Long term (current) use of aspirin
CPT/HCPCS: 36415; 36600; 71045; 80048; 82962; 83735; 84100; 84484; 85025; 93005 ×2; 96360; 99284; J3475; J7030